=== PATIENT | female | born 1990 | race Caucasian/White ===

== ENCOUNTER 2016-08-09 21:26 | Emergency (ER) | payer OTHER ==
[~2016-08-09] VITALS: Ht 157.5 cm; Wt 93.2 kg
[~2016-08-09 21:26] MED LIST: AMOX500C2 PO; BUTA1CAP41 PO; LAMO25TA PO; LORA1TAB PO; NITR100 PO; PENI500T PO
[2016-08-09 21:32] VITALS: BP 108/79; PULSE 125; RESP 20; O2SAT 98
[2016-08-09 22:11] LABS: BASOPHILS % (AUTO) 0.2 % (0-3); EOSINOPHILS % (AUTO) 0.3 % (0-5); MONOCYTES % (AUTO) 6.2 % (4-12); Mean Corpuscular Hemoglobin 29.2 pg (27.0-35.0); Mean Corpuscular Volume 85.2 fL (81-100); NEUTROPHILS % (AUTO) 81.5 % (40-74); Platelet Count 323 bil/L (150-400)
--- NOTE | 2016-08-09 22:50 | ED.REPORT ---
HPI-General Illness Date of Service August 09, 2016 ED Provider: Dr. Norbert Pereira The patient is a 26 year old female who presents to the ED accompanied by her 2 young children due a recurrent dental infection. She is currently on antibiotics and hydrocodone for pain. She requests more potent antibiotics. She is currently . She denies fever, nausea, vomiting, and diarrhea. Nursing Notes Stated Complaint: SICK OR INFECTED GUMS Chief Complaint: General Complaint Nursing Notes Reviewed: Yes Allergies: Coded Allergies: No Known Allergies (Verified Allergy, Unknown, 04/25/16) Scheduled Amoxicillin (Amoxicillin) 500 Mg Capsule 500 MG PO TID Lamotrigine (Lamotrigine) 25 Mg Tablet 25 MG PO BID Nitrofurantoin Monohyd/M-Cryst (MacroBid) 100 Mg Capsule 100 MG PO BID Penicillin V Potassium (Penicillin V Potassium) 500 Mg Tablet 500 MG PO QID Scheduled PRN Butalbital/Acetamin/Caff 50-300-40 mg (Butalbital/Acetamin/Caff 50-300-40 mg) 1 Each Capsule 1 CAPSULE PO Q4H PRN PRN Headache Lorazepam (Lorazepam) 1 Mg Tablet 0.5-1 MG PO DAILY PRN PRN For Anxiety General Time Seen by MD: 22:50 Chief Complaint Other (dental infection) Hx Obtained From: Patient Arrived By: Walk-in Sudden in Onset?: Yes Onset Occurred: 1 week ago Symptom Duration: Since onset Location: : Mouth Quality: Painful Severity: Current: Moderate Recent Healthcare: No recent doctor visit, No recent hospitalization Similar Sx Previous: Yes Past Medical History Past Medical History -Chronic UTI's and kidney infections -may have had nephrolithiasis Anxiety PTSD Borderline personality disorder Past Surgical History oral (nonspecific) Smoking History Current Every Day Smoker Social History Drug Use: THC Ambulatory Status Independent Review of Systems Full Review of Systems Constitutional: Denies: Fever, Weakness - generalized Ears / Nose / Throat: Reports: Mouth pain, Toothache GI: Denies: Diarrhea, Nausea, Vomiting Physical Exam Vital Signs Vital Signs Date Time Temp Pulse Resp B/P Pulse Ox O2 Delivery O2 Flow Rate FiO2 08/10/16 02:20 97 17 97/61 97 08/10/16 01:24 99 19 100/52 99 Room Air 08/09/16 23:53 111 15 101/65 100 Room Air 08/09/16 22:54 36.8 116 18 92/52 96 Room Air 08/09/16 21:32 39.1 125 20 108/79 98 Room Air Initial VS: Reviewed General/Constitutional: Well-developed, Well-nourished Head / Eyes: Atraumatic, Normocephalic, PERRL Neck: Supple Respiratory: Breath sounds normal, Clear to auscultation, No respiratory distress Abdomen / GI: Soft, Non-tender, No guarding, No rebound, No distention Extremities: Vascular intact, Neuro intact, No swelling, No tenderness Skin: Warm, Dry Dental / Gums: Positive: Ginigivitis present, Gum tenderness inflammed gingivitis [facility] Heart Rate / Rhythm: Positive: Tachycardia Interpretation & Diagnostics Lab Results Interpretation Result Diagram: 08/09/16220208/09/162202 Test 08/09/16 22:03 White Blood Count 17.3th/mm3 (3.8-10.1) Red Blood Count 4.87mil/mm3 (3.90-5.20) Hemoglobin 14.2g/dL (12.0-15.6) Hematocrit 41.5% (35.0-46.0) Mean Corpuscular Volume 85.2fL (81-100) Mean Corpuscular Hemoglobin 29.2pg (27.0-35.0) Mean Corpuscular Hemoglobin Concent 34.2% (32.0-37.0) Red Cell Distribution Width 13.2% (12.3-15.4) Platelet Count 323bil/L (150-400) Neutrophils (%) (Auto) 81.5% (40-74) Lymphocytes (%) (Auto) 11.5% (14-46) Monocytes (%) (Auto) 6.2% (4-12) Eosinophils (%) (Auto) 0.3% (0-5) Basophils (%) (Auto) 0.2% (0-3) Sodium Level 140mEq/L (134-144) Potassium Level 4.1mEq/L (3.5-5.2) Chloride Level 102mEq/L (97-108) Carbon Dioxide Level 22mmol/L (18-29) Blood Urea Nitrogen 9mg/dL (6-20) Creatinine 0.67mg/dL (0.57-1.00) Estimat Glomerular Filtration Rate 154mL/min (>59) Glucose Level 110mg/dL (60-99) Calcium Level 10.0mg/dL (8.5-10.1) Total Bilirubin 0.4mg/dL (0.0-1.2) Aspartate Amino Transf (AST/SGOT) 16U/L (0-50) Alanine Aminotransferase (ALT/SGPT) 16U/L (0-32) Alkaline Phosphatase 130U/L (25-150) Total Protein 7.8g/dL (6.4-8.4) Albumin 4.5g/dL (3.4-5.0) Hold Goins Top Tube Received (Received) Re-Eval/Medical Decision Med Decision/Clinical Course Healthy 26-year-old female presents to hydrated with gingival infection. She states that she has not been able eat or drink for the past 2-3 days secondary to dental pain. Recently had dental extraction she has been on penicillin however gingerly become much more inflamed. On examination she had obvious inflammatory gingivitis. No evidence of abscess. No Jaskaran angina. She was tachycardic and clinically dry. Respiratory exam was benign. She was fluid resuscitated and received broad-spectrum antibiotics including ceftriaxone and Flagyl. Pain was adequately treated. She looked and felt much better. Heart rate came down about 95. She felt ready to be discharged home. I will place her on a course of Augmentin as well as pain medication and close outpatient follow-up. She is currently breast-feeding she was given breast-feeding warnings regarding antibiotics and analgesia. Time of Eval: 01:09 Patient Status: Condition improved, Pain improved Re-Evaluation/Progress Note: Pt rechecked. She is much improved after fluids. Plan to send home on differetn antibiotics. F/U and RTER warnings given. Pt understands and agrees with plan. Pt understands and agrees with plan. Counseled Regarding: Diagnosis, Lab results, Need for follow-up, When/why to return to ED Discharge & Departure Primary Impression: Acute gingival inflammation Disposition: Home Discharge Condition All VS Reviewed: Yes Condition: Stable Patient Instructions: Gingivitis (GEN), Trench Mouth (GEN) Additional Instructions: Take Augmentin twice daily for 10 days. Do not breastfeed while you are taking the Percocet. You may take 1-2 Percocet every 6 hours as needed for severe pain. Do not drive or drink alcohol consume acetaminophen for taking the Percocet. Buy some Listerine mouthwash and rinse and spit twice daily. Follow up with your primary care physician in the next week. Return to the Emergency Department for any new or worsening symptoms. I hope you feel better soon! Do not drive or breast feed tonight as you have received sedating medications. Referrals: Melquiades Paula MD (PCP) Scribe Attestation Portion of this note were transcribed by Kelli Daly. I, Dr. Norbert Pereira, personally performed the history, physical exam, and medical decision-making: I reviewed and confirmed the accuracy for the information in the transcribed note. Signed by: irina Burger, 08/10/16 0200 copies to: Melquiades Paula MD, Todd P DO August 09, 2016 22:50 Kelli Daly August 10, 2016 00:03
[2016-08-09 22:54] VITALS: BP 92/52; PULSE 116; RESP 18; O2SAT 96
[2016-08-09] MEDS ORDERED: 0.9% Sodium Chloride 1,000 ML IV SCH (23:15)
[2016-08-09] MEDS ORDERED: metroNIDAZOLE Inj 500 MG in IV Premix 1 EACH IV ONE (23:15)
[2016-08-09] MEDS ORDERED: cefTRIAXone Inj 2,000 MG in Dextrose 5% Minibag Plus 50 ML IV ONE (23:15)
[2016-08-09] MEDS ORDERED: HYDROmorphone 0.5 mg/0.5 mL iSecure Syringe IVPUSH PRN (23:15)
[2016-08-09 23:53] VITALS: BP 101/65; PULSE 111; RESP 15; O2SAT 100
[2016-08-10] MEDS ORDERED: 0.9% Sodium Chloride 1,000 ML IV ONE (00:55)
[2016-08-10 01:24] VITALS: BP 100/52; PULSE 99; RESP 19; O2SAT 99
[2016-08-10 02:20] VITALS: BP 97/61; PULSE 97; RESP 17; O2SAT 97
== END 2016-08-10 02:21 | disposition home or self-care (01) ==
LOC: SED 21:26
DX: K05.10 Chronic gingivitis, plaque induced (principal); F17.200 Nicotine dependence, unspecified, uncomplicated; Z88.0 Allergy status to penicillin; Z88.1 Allergy status to other antibiotic agents
CPT/HCPCS: 36415; 80053; 85025; 96361; 96365; 96368; 96375; 99285; J0696; J1170; J2060; J3490; J7030

== ENCOUNTER 2016-09-29 20:06 | Emergency (ER) | payer OTHER ==
[~2016-09-29] VITALS: Ht 157.5 cm; Wt 90.0 kg
[2016-09-29 20:47] VITALS: BP 112/74; PULSE 95; RESP 18; O2SAT 98
--- NOTE | 2016-09-29 21:48 | ED.REPORT ---
HPI-Back Pain Under 40 Date of Service Sep 29, 2016 ED Provider: Rudi Saleem MD Pt is a 26 yo female w/ a hx of recurrent UTIs, mental illness, presenting to the ED c/o non-radiating low back pain onset today. The patient's back pain increased while standing all day throughout her work day. After work she experienced blood mixed with stool which she states is probably from hemorrhoids. Associated symptoms include nausea and decreased appetite. Pt denies fever, bowel or bladder incontinence, chills, vomiting, diarrhea, SOB, CP , lightheadedness, dizziness. Her last normal BM was 1-2 days ago without blood. She does not take medications and states she may have a family history of GI bleed. There is no history of abdominal surgeries. Nursing Notes Stated Complaint: HEMORRHOIDS AND BACK PAIN Chief Complaint: General Complaint Nursing Notes Reviewed: Yes ([email or web address], [employer] not reconciled) Allergies: Coded Allergies: No Known Allergies (Verified Allergy, Unknown, 04/25/16) Scheduled Amoxicillin (Amoxicillin) 500 Mg Capsule 500 MG PO TID Lamotrigine (Lamotrigine) 25 Mg Tablet 25 MG PO BID Nitrofurantoin Monohyd/M-Cryst (MacroBid) 100 Mg Capsule 100 MG PO BID Penicillin V Potassium (Penicillin V Potassium) 500 Mg Tablet 500 MG PO QID Scheduled PRN Butalbital/Acetamin/Caff 50-300-40 mg (Butalbital/Acetamin/Caff 50-300-40 mg) 1 Each Capsule 1 CAPSULE PO Q4H PRN PRN Headache Hydrocortisone Acetate (Anusol-Hc) 25 Mg Supp.rect 25 MG RC DAILY PRN PRN hemorrhoid Lorazepam (Lorazepam) 1 Mg Tablet 0.5-1 MG PO DAILY PRN PRN For Anxiety Ondansetron ODT (Ondansetron ODT) 8 Mg Tab.rapdis 8 MG PO Q4H PRN PRN For Nausea General Time Seen by MD: 21:39 Chief Complaint Lumbar pain Hx Obtained From: Patient Arrived By: Walk-in Sudden in Onset?: No Onset Occurred: 5 - 8 hours ago Symptom Duration: Since onset Location: : Perispinal lumbar Quality: Painful Severity: Current: Moderate Severity: Maximum: Moderate Similar Sx Previous: No Past Medical History Past Medical History -Chronic UTI's and kidney infections -may have had nephrolithiasis Anxiety PTSD Borderline personality disorder Past Surgical History oral (nonspecific) Smoking History Current Every Day Smoker Social History Drug Use: THC Ambulatory Status Independent Review of Systems Constitutional: Denies: Chills, Fever Respiratory: Denies: Non-productive cough, Shortness of breath Cardiovascular: Denies: Chest pain, Dyspnea on exertion GI: Reports: Bloody/tarry stool, Hematochezia, Nausea, Rectal pain, Denies: Abdominal pain, Melena, Vomiting Musculoskeletal: Reports: Back pain Neurologic: Denies: Bladder dysfunction, Bowel dysfunction Complete sys rev & neg: except as marked. Physical Exam Initial Vital Signs Vital Signs (First) Date Time Temp Pulse Resp B/P Pulse Ox O2 Delivery O2 Flow Rate FiO2 09/29/16 20:47 36.8 95 18 112/74 98 Room Air Initial VS: Reviewed, Vital signs normal Head / Eyes: Atraumatic, Normocephalic, PERRL ENT: Mucous membranes moist, Conjunctiva normal, No scleral icterus Neck: Supple, Full range of motion Respiratory: Breath sounds normal, Clear to auscultation, No respiratory distress Cardiovascular: Regular rate & rhythm, Heart sounds normal, Intact distal pulses Extremities: Vascular intact, Neuro intact, No swelling Skin: Warm, Dry, No cyanosis Psychiatric: Mood/affect normal, Behavior normal, Normal thought content General/Constitutional: Awake, Alert, No acute distress, Well appearing, Cooperative, Not toxic appearing Back: Atraumatic, Inspection NL, Full range of motion, Painless range of motion , Non-tender, No midline vertebral tend Neurologic: Oriented X3, Speech NL, No motor deficits, No sensory deficits, CN II - XII intact, Cerebellar NL, Memory NL Abdomen: Atraumatic, Soft, Non-tender, No guarding, No rebound, No distention, No palpable mass Rectum / Perineum: Atraumatic, Blood - occult heme -, No gross blood, No discharge, No fecal impaction, No fissures, No hemorrhoids, No lesions, No mass Interpretation & Diagnostics Lab Results Interpretation Result Diagram: 09/29/16219909/29/162199 Test 09/29/16 22:00 White Blood Count 9.7th/mm3 (3.8-10.1) Red Blood Count 4.62mil/mm3 (3.90-5.20) Hemoglobin 13.2g/dL (12.0-15.6) Hematocrit 39.7% (35.0-46.0) Mean Corpuscular Volume 85.9fL (81-100) Mean Corpuscular Hemoglobin 28.6pg (27.0-35.0) Mean Corpuscular Hemoglobin Concent 33.2% (32.0-37.0) Red Cell Distribution Width 13.7% (12.3-15.4) Platelet Count 259bil/L (150-400) Neutrophils (%) (Auto) 58.2% (40-74) Lymphocytes (%) (Auto) 32.0% (14-46) Monocytes (%) (Auto) 7.5% (4-12) Eosinophils (%) (Auto) 1.8% (0-5) Basophils (%) (Auto) 0.4% (0-3) Sodium Level 140mEq/L (134-144) Potassium Level 3.8mEq/L (3.5-5.2) Chloride Level 105mEq/L (97-108) Carbon Dioxide Level 22mmol/L (18-29) Blood Urea Nitrogen 10mg/dL (6-20) Creatinine 0.60mg/dL (0.57-1.00) Estimat Glomerular Filtration Rate 174mL/min (>59) Glucose Level 90mg/dL (60-99) Calcium Level 9.9mg/dL (8.5-10.1) Total Bilirubin 0.2mg/dL (0.0-1.2) Aspartate Amino Transf (AST/SGOT) 18U/L (0-50) Alanine Aminotransferase (ALT/SGPT) 16U/L (0-32) Alkaline Phosphatase 113U/L (25-150) Total Protein 7.4g/dL (6.4-8.4) Albumin 4.3g/dL (3.4-5.0) Lab Results Interpretation: CBC normal CMP normal Re-Eval/Medical Decision Med Decision/Clinical Course This is a 26-year-old female presents with complaint of low back pain, that sounds mechanical while at work-but then developed some rectal bleeding mixed with stool and is concerned about hemorrhoid as well. Was not sure how the 2 compared together, so came in to get checked out. The patient has had previous hemorrhoids. Additionally she reports some loss of appetite and nausea the past few days, but has not had any vomiting. Has no hematemesis. No fevers or additional complaints. The patient clinically appears well, her abdomen is soft, entirely nontender. On rectal exam I do not appreciate any visible hemorrhoid, and the rectal exam section guaiac negative. Blood work is also normal. She has a normal neurologic exam without focal deficits or red flags for acute neuro imaging. History sutures of pain and nausea medicine will wait for labs and is markedly improved. At This point I am not finding indication for hospitalization or additional testing. The patient is reassured, think she can safely follow up through her PCP-return and routine precautions reviewed. Source of Hx: Old records Re-Evaluation/Progress : Time of Eval: 23:23 Re-Evaluation/Progress Note: Pt rechecked. Informed pt of plan for treatment. Pt understands and agrees with plan for treatment. F/U instructions and RTER warnings given. All questions addressed. Differential Diagnosis: Positive: Musculoskeletal pain, Negative: Abrasion, Aortic dissection, Cauda equina syndrome, Deg osteoarthritis, Degen joint disease, Ectopic , Epidural hematoma, Fracture vertebrae, Gun shot wound, Spinal mass, Spondylolisthesis, Stab wound, Urinary obstruction Counseled Regarding: Diagnosis, Lab results, Need for follow-up, When/why to return to ED Discharge & Departure Impression: Primary Impression: Low back pain Chronicity: acute Back pain laterality: unspecified Sciatica presence: without sciatica Qualified Code: M54.5 - Low back pain Additional Impression: Rectal bleeding Disposition: Home All VS Reviewed: Yes Condition: Stable Referrals: Melquiades Paula MD (PCP) Jeremías Attestation Portions of this note were transcribed by Dick Jenkins. I, Dr. Saleem personally performed the history, physical exam and medical decision-making; I reviewed and confirmed the accuracy of the information in the transcribed note. Signed by Jeremías Mendoza, 09/29/16 - 2199 copies to: Melquiades Paula MD, Matthew F MD Sep 29, 2016 21:48 DICK JENKINS Sep 29, 2016 21:55
[2016-09-29] MEDS ORDERED: Ondansetron 2 mg/mL 2 mL Inj IVPUSH ONE (21:55)
[2016-09-29] MEDS ORDERED: HYDROmorphone 0.5 mg/0.5 mL iSecure Syringe IVPUSH PRN (21:55)
[2016-09-29 22:19] LABS: BASOPHILS % (AUTO) 0.4 % (0-3); EOSINOPHILS % (AUTO) 1.8 % (0-5); MONOCYTES % (AUTO) 7.5 % (4-12); Mean Corpuscular Hemoglobin 28.6 pg (27.0-35.0); Mean Corpuscular Volume 85.9 fL (81-100); NEUTROPHILS % (AUTO) 58.2 % (40-74); Platelet Count 259 bil/L (150-400)
[2016-09-29] MEDS ORDERED: _Ondansetron ODT 4 mg Tablet PO PRN (23:20)
[2016-09-29] MEDS ORDERED: _HYDROcodone/APAP 5-325 mg Tablet PO PRN (23:20)
[2016-09-29] MEDS ORDERED: ONDA8TAB10 PO (23:28)
[2016-09-29] MEDS ORDERED: HYDR25SU31 RC (23:28)
[2016-09-29 23:34] VITALS: BP 101/56; PULSE 72; RESP 16; O2SAT 99
[2016-09-29 23:41] VITALS: BP 101/56; PULSE 72; RESP 16; O2SAT 99
== END 2016-09-29 23:42 | disposition home or self-care (01) ==
LOC: SED 20:06
DX: M54.5 Low back pain (principal); K62.5 Hemorrhage of anus and rectum; R11.0 Nausea; F17.200 Nicotine dependence, unspecified, uncomplicated
CPT/HCPCS: 36415; 80053; 85025; 96374; 96375; 99284; J1170; J2405

== ENCOUNTER 2016-11-19 16:29 | Emergency (ER) | payer OTHER ==
[~2016-11-19] VITALS: Ht 157.5 cm; Wt 90.9 kg
[~2016-11-19 16:29] MED LIST changes: +HYDR25SU31 RC; +ONDA8TAB10 PO
[2016-11-19 16:34] VITALS: BP 116/77; PULSE 106; RESP 20; O2SAT 100
--- NOTE | 2016-11-19 17:40 | DRSVH ---
PROCEDURE: X-RAY RIGHT KNEE, THREE VIEWS ([id number]) INDICATIONS: Fall. TECHNIQUE: 3 views of the knee were acquired. COMPARISON: None. FINDINGS: Bones: No fractures or dislocations. No suspicious bony lesions. Soft tissues: No joint effusion. No suspicious soft tissue calcifications. IMPRESSION: No trauma found. Dictated by: Gee Mckoy M.D. on 11/19/2016 at 17:38 Approved by: Gee Mckoy M.D. on 11/19/2016 at 17:39
--- NOTE | 2016-11-19 18:36 | ED.REPORT ---
HPI-Extremity Problem Lower Date of Service Nov 19, 2016 ED Provider: Doc,Ed MD History of Present Illness: 26-year-old female here for right knee pain. This before arrival she slipped on the wet ground at work and her knee twisted as she fell. She does have a previous injury years ago, she had a sprain. She has been without symptoms for quite some time prior to this accident. She has been nonweightbearing since this injury today. The most pain Pain is behind her knee, although her whole knee is painful. Nursing Notes Stated Complaint: RIGHT KNEE POPPED OUT OF PLACE/WORK RELATED Chief Complaint: Extremity Trauma Nursing Notes Reviewed: Yes Allergies: Coded Allergies: No Known Allergies (Verified Allergy, Unknown, 04/25/16) Scheduled Amoxicillin (Amoxicillin) 500 Mg Capsule 500 MG PO TID Lamotrigine (Lamotrigine) 25 Mg Tablet 25 MG PO BID Nitrofurantoin Monohyd/M-Cryst (MacroBid) 100 Mg Capsule 100 MG PO BID Penicillin V Potassium (Penicillin V Potassium) 500 Mg Tablet 500 MG PO QID Scheduled PRN Butalbital/Acetamin/Caff 50-300-40 mg (Butalbital/Acetamin/Caff 50-300-40 mg) 1 Each Capsule 1 CAPSULE PO Q4H PRN PRN Headache Hydrocortisone Acetate (Anusol-Hc) 25 Mg Supp.rect 25 MG RC DAILY PRN PRN hemorrhoid Lorazepam (Lorazepam) 1 Mg Tablet 0.5-1 MG PO DAILY PRN PRN For Anxiety Ondansetron ODT (Ondansetron ODT) 8 Mg Tab.rapdis 8 MG PO Q4H PRN PRN For Nausea General Time Seen by MD: 18:35 Chief Complaint Knee injury right Hx Obtained From: Patient Arrived By: Walk-in Onset Occurred: Just prior to arrival Symptom Duration: Constant Caused by: Fall on ground Location: : Knee right Severity: Current: Severe Severity: Maximum: Severe Pertinent Negative: Pt denies other symptoms Exacerbated by: Range of motion, Movement Similar Sx Previous: Yes Past Medical History Past Medical History -Chronic UTI's and kidney infections -may have had nephrolithiasis Anxiety PTSD Borderline personality disorder Past Surgical History oral (nonspecific) Smoking History Current Every Day Smoker Social History Drug Use: THC Ambulatory Status Independent Review of Systems Musculoskeletal: Reports: Extremity pain Physical Exam Initial Vital Signs Vital Signs (First) Date Time Temp Pulse Resp B/P Pulse Ox O2 Delivery O2 Flow Rate FiO2 11/19/16 16:34 36.7 106 20 116/77 100 Room Air Initial VS: Reviewed, Vital signs normal General/Constitutional: Well-developed, Well-nourished Head / Eyes: Atraumatic, Normocephalic, PERRL ENT: Mucous membranes moist, Conjunctiva normal, No scleral icterus Neck: Supple, Non-tender, Full range of motion Respiratory: Breath sounds normal, Clear to auscultation, No respiratory distress Cardiovascular: Regular rate & rhythm, Heart sounds normal, Intact distal pulses Skin: Warm, Dry, No cyanosis Neurologic: Alert, Oriented, Nonfocal Psychiatric: Mood/affect normal, Behavior normal, Normal thought content Lower Extremity / Pelvis / MS: Atraumatic, Inspection NL, No swelling, No erythema, No deformity, Neurologic intact, Vascular intact, No edema Right Knee: Positive: ROM painful, ROM reduced, Tenderness present... (Severe) tenderness to right knee, most severe posterior knee. Exam was admitted related to pain. Patient cannot bend knee more than 15. Preferred position is with her knee straight. Interpretation & Diagnostics Interpretation & Diagnostics: PROCEDURE: X-RAY RIGHT KNEE, THREE VIEWS ([id number]) INDICATIONS: Fall. TECHNIQUE: 3 views of the knee were acquired. COMPARISON: None. FINDINGS: Bones: No fractures or dislocations. No suspicious bony lesions. Soft tissues: No joint effusion. No suspicious soft tissue calcifications. IMPRESSION: No trauma found. Procedures Procedure Notes: Splint knee given crutches, follow-up with PCP for further eval. Discharge & Departure Shift Change Sign-Out Procedures: Results discussed Impression: Primary Impression: Strain of right knee Encounter type: initial encounter Qualified Code: S86.911A - Strain of unspecified muscle(s) and tendon(s) at lower leg level, right leg, initial encounter Disposition: Home Discharge Condition All VS Reviewed: Yes Condition: Stable Patient Instructions: Knee Sprain (ED) Additional Instructions: Wear knee splint as discussed, use crutches. Use ice and ibuprofen as needed for pain and swelling. Follow up Monday with your PCP for further evaluation and exam. Nonweightbearing until cleared. No work until you are seen by her PCP. Referrals: Melquiades Paula MD (PCP) EDSupervising Provider for APC: Andrey Vivas Linnea K [facility] Nov 19, 2016 18:36
[2016-11-19 19:42] VITALS: BP 124/76; PULSE 82; RESP 14; O2SAT 97
== END 2016-11-19 19:42 | disposition home or self-care (01) ==
LOC: SED 16:29
DX: S86.911A Strain of unspecified muscle(s) and tendon(s) at lower leg level, right leg, initial encounter (principal); W01.0XXA Fall on same level from slipping, tripping and stumbling without subsequent striking against object, initial encounter; Y93.89 Activity, other specified; Y99.0 Civilian activity done for income or pay; Y92.59 Other trade areas as the place of occurrence of the external cause; F17.200 Nicotine dependence, unspecified, uncomplicated; Z87.440 Personal history of urinary (tract) infections

== ENCOUNTER 2016-12-04 22:32 | Emergency (ER) | payer OTHER ==
[~2016-12-04] VITALS: Ht 157.5 cm; Wt 90.9 kg
[2016-12-04 22:51] VITALS: BP 112/77; PULSE 85; RESP 18; O2SAT 97
--- NOTE | 2016-12-04 23:06 | ED.REPORT ---
HPI-Extremity Problem Lower Date of Service Dec 04, 2016 ED Provider: Norbert Pereira DO Pt is a 26 year old female with a history of anxiety who presents to the ED complaining of exacerbated right knee pain onset prior to arrival. She c/o nausea and anxiety secondary to the pain. She denies any other symptoms. The pt reports that she slipped and fell at work 1 week ago, causing her initial injury. She was placed in an immobilizer, and told to wean off her crutches by a physical therapist. Pt states that she was cleaning the kitchen today, which exacerbated her pain. The pt took ibuprofen and applied ice without relief. She reports that her pain was further exacerbated with her child bumping into her leg. Pt denies . The pt has an MRI scheduled on 12/07/16. She does not want an x-ray of her knee. Nursing Notes Stated Complaint: KNEE PAIN L&I,ANXIETY Chief Complaint: Extremity Trauma Nursing Notes Reviewed: Yes Allergies: Coded Allergies: No Known Allergies (Verified Allergy, Unknown, 12/04/16) Scheduled Amoxicillin (Amoxicillin) 500 Mg Capsule 500 MG PO TID Lamotrigine (Lamotrigine) 25 Mg Tablet 25 MG PO BID Nitrofurantoin Monohyd/M-Cryst (MacroBid) 100 Mg Capsule 100 MG PO BID Penicillin V Potassium (Penicillin V Potassium) 500 Mg Tablet 500 MG PO QID Scheduled PRN Butalbital/Acetamin/Caff 50-300-40 mg (Butalbital/Acetamin/Caff 50-300-40 mg) 1 Each Capsule 1 CAPSULE PO Q4H PRN PRN Headache Hydrocortisone Acetate (Anusol-Hc) 25 Mg Supp.rect 25 MG RC DAILY PRN PRN hemorrhoid Lorazepam (Lorazepam) 1 Mg Tablet 0.5-1 MG PO DAILY PRN PRN For Anxiety Ondansetron ODT (Ondansetron ODT) 8 Mg Tab.rapdis 8 MG PO Q4H PRN PRN For Nausea General Time Seen by MD: 23:06 Chief Complaint Leg injury right Hx Obtained From: Patient Arrived By: Walk-in Onset Occurred: More than a week ago... (2 weeks) Symptom Duration: Since onset Location: : Leg right Quality: Painful Severity: Current: Moderate Severity: Maximum: Moderate Recent Healthcare: Recent doctor visit Similar Sx Previous: No Past Medical History Past Medical History -Chronic UTI's and kidney infections -may have had nephrolithiasis Anxiety PTSD Borderline personality disorder Past Surgical History oral (nonspecific) Smoking History Current Every Day Smoker Social History Alcohol Use: "Social" Drug Use: THC Other Social History: Good social support Ambulatory Status Independent Review of Systems Constitutional: Denies: Fever Musculoskeletal: Reports: Joint pain (right knee) Complete sys rev & neg: except as marked. Respiratory: Denies: Non-productive cough, Shortness of breath GI: Reports: Nausea Psychiatric: Reports: Anxiety Physical Exam Initial Vital Signs Vital Signs (First) Date Time Temp Pulse Resp B/P Pulse Ox O2 Delivery O2 Flow Rate FiO2 12/04/16 22:51 36.8 85 18 112/77 97 Initial VS: Reviewed Head / Eyes: Atraumatic, Normocephalic Neck: Supple, Full range of motion Respiratory: Breath sounds normal, Clear to auscultation, No respiratory distress Cardiovascular: Regular rate & rhythm, Heart sounds normal, Intact distal pulses Abdomen / GI: Soft, Non-tender Upper Extremities: Vascular intact, Neuro intact Skin: Warm, Dry, No cyanosis Neurologic: Alert, Oriented, Nonfocal Psychiatric: Mood/affect normal, Behavior normal Lower Extremity / Pelvis / MS: Neurologic intact, Vascular intact Tender lateral knee. No step-off. No calf pain with compression. Ankle / Foot: Neurologic intact, Vascular intact General/Constitutional: Awake, Alert Re-Eval/Medical Decision Med Decision/Clinical Course Pain with varus stress. Lateral knee. No point bony tenderness. She declines x-rays. She has an MRI set up for Monday. That she give definitive answers either way. Short course of opiates provided for pain. Recommend immobilizer. Source of Hx: Old records Re-Evaluation/Progress : Time of Eval: 23:51 Re-Evaluation/Progress Note: Pt rechecked. Informed pt of plan for discharge. Pt understands and agrees with plan for discharge. F/U instructions and RTER warnings given. All questions addressed. Counseled Regarding: Diagnosis, Need for follow-up, When/why to return to ED Discharge & Departure Impression: Primary Impression: Right knee sprain Encounter type: subsequent encounter Involved ligament of knee: unspecified ligament Qualified Code: S83.91XD - Sprain of unspecified site of right knee, subsequent encounter Disposition: Home Discharge Condition All VS Reviewed: Yes Condition: Stable Patient Instructions: Knee Sprain (DC), Crutch Instructions (ED) Additional Instructions: Wear your knee immobilizer and use your crutches as instructed. Keep your MRI follow-up on Monday. If you develop any bony tenderness come back and we will perform x-rays as we discussed. Take Naprosyn twice daily for moderate pain. Take 1-2 Firestone every 6 hours as needed for severe pain. Do not drive or drink alcohol consume acetaminophen while taking the Firestone. Return if any problems or any new or worrisome symptoms. Do not drive tonight. Referrals: Melquiades Paula MD (PCP) Scribe Attestation Portions of this note were transcribed by Tianna Medeiros. I, Dr. Pereira personally performed the history, physical exam and medical decision-making; I reviewed and confirmed the accuracy of the information in the transcribed note. Signed by : Jeremías Foreman, 12/04/16. copies to: Melquiades Paula MD, Todd P DO Dec 04, 2016 23:06 Tianna Hooker Dec 04, 2016 23:26
[2016-12-04] MEDS ORDERED: HYDROcodone-APAP 5-325 mg Tablet PO ONE (23:15)
[2016-12-04 23:22] VITALS: BP 116/70; PULSE 88; RESP 18; O2SAT 97
[2016-12-05 00:01] VITALS: BP 116/70; PULSE 88; RESP 18; O2SAT 97
== END 2016-12-05 00:02 | disposition home or self-care (01) ==
LOC: SED 22:32
DX: S83.8X1D Sprain of other specified parts of right knee, subsequent encounter (principal); W01.0XXD Fall on same level from slipping, tripping and stumbling without subsequent striking against object, subsequent encounter; Y93.89 Activity, other specified; Y92.69 Other specified industrial and construction area as the place of occurrence of the external cause; Y99.8 Other external cause status; F41.9 Anxiety disorder, unspecified; F17.200 Nicotine dependence, unspecified, uncomplicated; Z87.440 Personal history of urinary (tract) infections